=== PATIENT | female | born 1990 | race Caucasian/White ===

== ENCOUNTER 2018-02-21 18:07 | Emergency (ER) | payer MEDICAID ==
[~2018-02-21] VITALS: Ht 175.3 cm; Wt 59.5 kg
[~2018-02-21 18:07] MED LIST: IBUP-1051 PO
[2018-02-21 18:20] VITALS: BP 122/78
== END 2018-02-21 19:00 | disposition home or self-care (01) ==
LOC: ER 18:08
DX: F10.20 Alcohol dependence, uncomplicated (principal); F15.10 Other stimulant abuse, uncomplicated; F17.200 Nicotine dependence, unspecified, uncomplicated; Z56.0 Unemployment, unspecified; Y90.9 Presence of alcohol in blood, level not specified
CPT/HCPCS: 99281

== ENCOUNTER 2018-03-17 11:43 | Emergency (ER) | payer MEDICAID ==
[~2018-03-17] VITALS: Ht 157.5 cm; Wt 63.2 kg
[2018-03-17 11:50] VITALS: BP 118/56
[2018-03-17] MEDS ORDERED: SULF1TAB49 PO (12:32)
== END 2018-03-17 17:26 | disposition home or self-care (01) ==
LOC: ER 11:44
DX: L03.116 Cellulitis of left lower limb (principal); F15.90 Other stimulant use, unspecified, uncomplicated; Z56.0 Unemployment, unspecified
CPT/HCPCS: 99283